=== PATIENT | male | born 1945 | race Caucasian/White ===

== ENCOUNTER → 2017-06-01 09:38 | Outpatient (CLI) | payer MEDICARE, OTHER, SELFPAY ==
--- NOTE | 2017-06-01 09:41 | VDLE_ITS ---
Reason For Study: RLE superficial thrombophlebitis RIGHT CFV is compressible, spontaneous, phasic, competent and demonstrates normal augmentation. T/P Trunk is compressible. PTV is compressible. RT PerV is compressible. FV & POP V are compressible, spontaneous, phasic and demonstrate reflux > 1.0 seconds. SFJ is incompetent. GSV above knee is incompetent > .5 seconds with diamter of 0.654 x 0.664 cm. GSV below knee is competent SSV is competent. VV below knee are compressible. VV above knee are partially compressible. Procedure Exam performed in department. The exam was diagnostic. Interpretation Summary Deep veins of the right lower extremity are patent and compressible segmentally. There is no evidence of right lower extremity deep vein thrombosis. The right femoral vein and popliteal vein are incompetent. The right common femoral vein is competent. The right greater saphenous vein appears patent and compressible segmentally. The right sapheno-femoral junction is incompetent . The right greater saphenous vein appears incompetent above the knee. The right greater saphenous vein appears competent below the knee. The right small saphenous vein is patent and competent. Chronic venous changes are noted involving superficial varicosities above the right knee. Ordering Physician: Ashwin Fermin Referring Physician: Rosa Maria Lopez Performed By: An Fuentes, RDCS, RVT
== END ==
PROVIDERS: Family Provider Family Medicine; PCP Family Medicine; Visit Provider Surgery
DX: I80.01 Phlebitis and thrombophlebitis of superficial vessels of right lower extremity (principal); I83.10 Varicose veins of unspecified lower extremity with inflammation; Z86.72 Personal history of thrombophlebitis
CPT/HCPCS: 93970

== ENCOUNTER → 2017-07-09 12:54 | Outpatient (CLI) | payer MEDICARE, OTHER, SELFPAY ==
--- NOTE | 2017-07-09 12:55 | CT_ITS ---
STUDY: LOW DOSE CT LUNG CANCER SCREENING REASON FOR EXAM: Male, 72 years old. Former smoker. 40 pack-year history. Dry cough for 2 months. RADIATION DOSAGE (If Supplied By Facility): CTDIvol = ( 4.02 ) mGy, DLP = ( 132.90 ) mGycm TECHNIQUE: No contrast was administered. Low dose technique was utilized (average mAS-38 and kVp 120). 1.25 mm axial source images with a slice interval of 1.25-mm were reconstructed in lung windows. 2.5 mm axial source images with a slice interval of 2.5-mm were reconstructed in lung windows. 5.0 mm axial source images with a slice interval of 5.0-mm were reconstructed in soft tissue windows. Nodule measured using lung windows on PACS and/or independent workstation with automated measurement of minimum and maximum diameter. Nodule measurement reported as average diameter rounded to the nearest whole number. Growth is defined as an increase ins size of greater than 1.5 mm. COMPARISON: CT of the chest, January 12, 2017 NODULES: Nodule #: 1 Density: Solid Lung location: Right upper lobe: 0.5 cm from pleura Location in series: Series Number: 2 Image: 40 Size - D1 x D2 mm: 2 x 1 mm: 2 mm average diameter Margin: Well-defined Shape: Oval Calcification: No Fat: No Temporal comparison: None Nodule #: 2 Density: Ground glass Lung location: Right upper lobe: 0.3 cm from pleura Location in series: Series Number: 2 Image: 50 Size - D1 x D2 mm: 3 x 3 mm: 3 mm average diameter Margin: Ill-defined Shape: Rounded Calcification: No Fat: No Temporal comparison: Stable Nodule #: 3 Density: Ground glass Lung location: Right upper lobe 0.6: cm from pleura Location in series: Series Number: 2 Image: 56 Size - D1 x D2 mm: 2 x 2 mm: 2 mm average diameter Margin: Ill-defined Shape: Rounded Calcification: No Fat: No Temporal comparison: Stable Nodule #: 4 Density: Ground glass Lung location: Right upper lobe: 0.3 cm from pleura Location in series: Series Number: 2 Image: 59 Size - D1 x D2 mm: 2 x 2 mm: 2 mm average diameter Margin: Ill-defined Shape: Rounded Calcification: No Fat: No Temporal comparison: None Nodule #: 5 Density: Solid Lung location: Right upper lobe: Pleural-based Location in series: Series Number: 2 Image: 69 Size - D1 x D2 mm: 2 x 1 mm: 2 mm average diameter Margin: Smooth Shape: Oval Calcification: No Fat: No Temporal comparison: Stable Nodule #: 6 Density: Solid Lung location: Right upper lobe: Pleural-based (along the right heart margin) Location in series: Series Number: 2 Image: 119 Size - D1 x D2 mm: 5 x 4 mm: 5 mm average diameter Margin: Normal Shape: Oval Calcification: Yes Fat: No Temporal comparison: Stable Nodule #: 9 Density: Solid Lung location: Right lower lobe: Pleural-based Location in series: Series Number: 2 Image: 137 Size - D1 x D2 mm: 454 mm: 4 mm average diameter Margin: Smooth Shape: Round Calcification: Yes Fat: No Temporal comparison: Stable Nodule #: 10 Density: Solid Lung location: Left lower lobe: Along the oblique fissure Location in series: Series Number: 2 Image: 137 Size - D1 x D2 mm: 3 x 2 mm: 3 mm average diameter Margin: Smooth Shape: Oval Calcification: No Fat: No Temporal comparison: Stable Nodule #: 11 Density: Solid Lung location: Left lower lobe: 1.5 cm from pleura Location in series: Series Number: 2 Image: 153 Size - D1 x D2 mm: 6 x 5 mm: 6 mm average diameter Margin: Smooth Shape: Round Calcification: No Fat: No Temporal comparison: Stable Total lung nodules (excluding granulomas): 7 Emphysema: There is diffuse emphysematous changes throughout both lungs. Endobronchial lesion: None Aorta: There is atherosclerotic tortuosity of the thoracic aorta without aneurysm. Coronary arteries: Coronary artery calcifications are present. Heart: Normal in size Pulmonary artery: Normal Mediastinal nodes: None Other chest and abdominal findings: There are degenerative changes of the thoracic spine. Again seen is a large cyst in the right liver. CT/Low Dose CT Lung Screening IMPRESSION: Lung-RADS category 2 - Continue annual screening with LDCT in 12 months. IMPORTANT NOTES FOR USE: ACR Lung-RADS Version 1.0 Assessment Categories Release Date: August 15, 2013 Category: Coded 0-4 bases on nodule(s) with highest degree of suspicion. Negative screen is defined as categories 1 and 2; a positive screen is defined as categories 3 and 4. Category 3 and 4A nodules that are unchanged on interval CT should be coded as category 2, and individuals returned to screening in 12 months. Category 4X: Category 3 or 4 nodules with additional imaging findings that increase the suspicion of lung cancer, such as spiculation, GGN that doubles in size in 1 year, enlarged lymph notes, etc. Category Modifiers: S (significant finding unrelated to lung cancer) and C (prior history of treated lung cancer) may be added to the 0-4 Lung-RADS Electronically Signed: Payam Solano DO at 16:38 EDT Tel [phone], Service support ,
== END ==
PROVIDERS: Family Provider Family Medicine; PCP Family Medicine; Visit Provider Family Medicine
DX: R05 Cough (principal); Z87.891 Personal history of nicotine dependence
CPT/HCPCS: G0297

== ENCOUNTER → 2018-05-31 10:01 | Outpatient (CLI) | payer MEDICARE, OTHER, SELFPAY ==
[2018-01-20 08:59] VITALS: BMI 37.5
--- NOTE | 2018-05-31 10:04 | ECHOCS_ITS ---
Reason For Study: Dyspnea/SOB Procedure This was a 2D Doppler, Color Flow transthoracic echocardiogram. Contrast injection was performed. Exam performed in department. Left Ventricle Normal LV size. Left ventricular systolic function is normal. The estimated ejection fraction is 55 %. Stage 1 diastolic dysfunction. No regional wall motion abnormalities noted. Right Ventricle Normal RV size. Normal systolic function. Atria The left atrium is mildly enlarged. Normal right atrium. Mitral Valve Normal mitral valve. Tricuspid Valve Normal tricuspid valve. Mild (1+) tricuspid valve insufficiency. Pulmonary artery systolic pressure is 34 mmHg. Aortic Valve Normal aortic valve. Pulmonic Valve Normal pulmonic valve. Great Vessels Normal aortic root. The pulmonary artery is normal size. Normal inferior vena cava. Pericardium/Pleural No pericardial effusion. Medication Definity0.3ml given slow IV push to enhance endocardial definition. MMode/2D Measurements & Calculations LVIDd: 5.6 cm IVSd: 0.95 cm Ao root diam: 3.2 cm LVIDs: 3.1 cm LVPWd: 1.0 cm RVDd: 4.9 cm FS: 45.3 % LAV(MOD-bp): 70.4 ml LVAd ap4: 43.2 cm2 SV(MOD-sp4): 96.0 ml LAV(MOD-bp) Indexed: 31.4 ml/m2 EDV(MOD-sp4): 176.8 ml LAV(MOD-sp2): 60.2 ml EDV(sp4-el): 186.2 ml LAV(MOD-sp4): 72.2 ml LVAs ap4: 26.9 cm2 ESV(MOD-sp4): 80.8 ml ESV(sp4-el): 81.2 ml EF(MOD-sp4): 54.3 % EF(sp4-el): 56.4 % SV(sp4-el): 104.9 ml LA A4 area: 23.0 cm2 LA dimension(2D): 4.3 cm RA A4 area: 22.8 cm2 Doppler Measurements & Calculations MV E max panchito: 67.4 cm/sec Lat Peak E' Panchito: 7.8 cm/sec Med Peak E' Panchito: 5.4 cm/sec MV A max panchito: 83.0 cm/sec E/E' lat: 8.6 E/E' med: 12.6 MV E/A: 0.81 Ao V2 max: 155.3 cm/sec LV V1 max: 112.4 cm/sec PA V2 max: 77.0 cm/sec Ao max P.6 mmHg LV V1 max P.1 mmHg Ao V2 mean: 98.0 cm/sec Ao mean P.4 mmHg Ao V2 VTI: 35.4 cm TR max panchito: 262.4 cm/sec TR max P.5 mmHg Interpretation Summary Normal LV size. Left ventricular systolic function is normal. The estimated ejection fraction is 55 %. Stage 1 diastolic dysfunction. Contrast injection was performed. Ordering Physician: Devyn Torres^D.O. Referring Physician: Gualberto Conrad Performed By: Chelsy Nieves, LIZBETH, RVT
== END ==
PROVIDERS: Family Provider Family Medicine; PCP Family Medicine; Referring Provider Internal Medicine Critical Care Medicine; Visit Provider Internal Medicine Critical Care Medicine
DX: R06.00 Dyspnea, unspecified (principal); R06.02 Shortness of breath
CPT/HCPCS: 93306; Q9957; A4216; C8929

== ENCOUNTER → 2018-06-05 08:32 | Outpatient (CLI) | payer MEDICARE, OTHER, SELFPAY ==
--- NOTE | 2018-06-05 08:35 | CT_ITS ---
STUDY: LOW DOSE CT LUNG CANCER SCREENING REASON FOR EXAM: Male, 73 years old. Tobacco abuse, 60 pack-year history, quit 20 years ago RADIATION DOSAGE (If Supplied By Facility): CTDIvol = ( 4.02 ) mGy, DLP = ( 127.37 ) mGycm TECHNIQUE: No contrast was administered. Low dose technique was utilized (average mAS-38 and kVp 120). 1.25 mm axial source images with a slice interval of 1.25-mm were reconstructed in lung windows. 2.5 mm axial source images with a slice interval of 2.5-mm were reconstructed in lung windows. 5.0 mm axial source images with a slice interval of 5.0-mm were reconstructed in soft tissue windows. Nodule measured using lung windows on PACS and/or independent workstation with automated measurement of minimum and maximum diameter. Nodule measurement reported as average diameter rounded to the nearest whole number. Growth is defined as an increase ins size of greater than 1.5 mm. COMPARISON: None. NODULES: Nodule #: 1 Density: Solid Lung location: Right upper lobe: 0.5 cm from pleura Location in series: Series Number: 2 Image: 40 Size - D1 x D2 mm: 2 x 1 mm: 2 mm average diameter Margin: Well-defined Shape: Oval Calcification: No Fat: No Temporal comparison: Stable Nodule #: 2 Density: Ground glass Lung location: Right upper lobe: 0.3 cm from pleura Location in series: Series Number: 2 Image: 56 Size - D1 x D2 mm: 3 x 3 mm: 3 mm average diameter Margin: Ill-defined Shape: Rounded Calcification: No Fat: No Temporal comparison: Stable Nodule #: 3 Density: Ground glass Lung location: Right upper lobe 0.6: cm from pleura Location in series: Series Number: 2 Image: 61 Size - D1 x D2 mm: 2 x 2 mm: 2 mm average diameter Margin: Ill-defined Shape: Rounded Calcification: No Fat: No Temporal comparison: Stable Nodule #: 4 Density: Ground glass Lung location: Right upper lobe: 0.3 cm from pleura Location in series: Series Number: 2 Image: 64 Size - D1 x D2 mm: 2 x 2 mm: 2 mm average diameter Margin: Ill-defined Shape: Rounded Calcification: No Fat: No Temporal comparison: Stable Nodule #: 5 Density: Solid Lung location: Right upper lobe: Pleural-based Location in series: Series Number: 2 Image: 72 Size - D1 x D2 mm: 2 x 1 mm: 2 mm average diameter Margin: Smooth Shape: Oval Calcification: No Fat: No Temporal comparison: Stable Nodule #: 6 Density: Solid Lung location: Right upper lobe: Pleural-based (along the right heart margin) Location in series: Series Number: 2 Image: 125 Size - D1 x D2 mm: 5 x 4 mm: 5 mm average diameter Margin: Normal Shape: Oval Calcification: Yes Fat: No Temporal comparison: Stable Nodule #: 9 Density: Solid Lung location: Right lower lobe: Pleural-based Location in series: Series Number: 2 Image: 135 Size - D1 x D2 mm: 454 mm: 4 mm average diameter Margin: Smooth Shape: Round Calcification: Yes Fat: No Temporal comparison: Stable Nodule #: 10 Density: Solid Lung location: Left lower lobe: Along the oblique fissure Location in series: Series Number: 2 Image: 121 Size - D1 x D2 mm: 3 x 2 mm: 3 mm average diameter Margin: Smooth Shape: Oval Calcification: No Fat: No Temporal comparison: Stable Nodule #: 11 Density: Solid Lung location: Left lower lobe: 1.5 cm from pleura Location in series: Series Number: 2 Image: 138 Size - D1 x D2 mm: 6 x 5 mm: 6 mm average diameter Margin: Smooth Shape: Round Calcification: No Fat: No Temporal comparison: Stable Total lung nodules (excluding granulomas): 11 Emphysema: There is diffuse emphysematous changes throughout both lungs. Endobronchial lesion: None Aorta: There is atheros (stable) clerotic tortuosity of the thoracic aorta without aneurysm. Coronary arteries: Coronary artery calcifications are present. Heart: Normal in size Pulmonary artery: Normal Mediastinal nodes: None Other chest and abdominal findings: There are degenerative changes of the thoracic spine. Again seen is a cyst in the right liver. CT/Low Dose CT Lung Screening IMPRESSION: Lung-RADS category 2 - Continue annual screening with LDCT in 12 months, if patient meets criteria. IMPORTANT NOTES FOR USE: ACR Lung-RADS Version 1.0 Assessment Categories Release Date: August 15, 2013 Category: Coded 0-4 bases on nodule(s) with highest degree of suspicion. Negative screen is defined as categories 1 and 2; a positive screen is defined as categories 3 and 4. Category 3 and 4A nodules that are unchanged on interval CT should be coded as category 2, and individuals returned to screening in 12 months. Category 4X: Category 3 or 4 nodules with additional imaging findings that increase the suspicion of lung cancer, such as spiculation, GGN that doubles in size in 1 year, enlarged lymph notes, etc. Category Modifiers: S (significant finding unrelated to lung cancer) and C (prior history of treated lung cancer) may be added to the 0-4 Lung-RADS Electronically Signed: Augustin Lentz MD at 14:26 EST , Service support ,
== END ==
PROVIDERS: Family Provider Family Medicine; PCP Family Medicine; Referring Provider Internal Medicine Critical Care Medicine; Visit Provider Internal Medicine Critical Care Medicine
DX: F17.211 Nicotine dependence, cigarettes, in remission (principal)
CPT/HCPCS: G0297

== ENCOUNTER → 2018-07-13 09:19 | Outpatient (CLI) | payer MEDICARE, OTHER, SELFPAY ==
[2018-01-20 08:59] VITALS: BMI 37.5
--- NOTE | 2018-07-13 15:40 | PFTCOMP_ITS ---
COMPLETE PULMONARY FUNCTION TEST INTERPRETATION Brief HPI: Patient is a 73 year old male, currently under the care of Dr. Torres, who presents to [facility] for complete pulmonary function tests secondary to diagnosis of COPD. Respiratory therapist reports good effort and reproducible results. Interpretation: Forced expiration spirometry shows a mild large airways obstructive ventilatory defect with an FEV1 of 87% predicted. There is a significant bronchodilator response in FEV1 by strict ATS criteria. Spirograms are of good quality and plateau slowly, indicating slowly emptying areas of the lungs. The respiratory flow volume loop shows decreased expiratory flow rates at all lung volumes consistent with airway obstruction. Lung volumes by body plethysmography show a normal total lung capacity at 6.15 L, 95% predicted. All other lung volumes are within normal limits. Diffusion capacity by carbon monoxide is normal at 87% predicted. The airway resistance is elevated. Compared to previous pulmonary function tests from 01/13/2017, there has been no significant change. Impression: Partially reversible mild large airways obstructive ventilatory defect with preserved diffusing capacity.
== END ==
PROVIDERS: Family Provider Family Medicine; PCP Family Medicine; Referring Provider Internal Medicine Critical Care Medicine; Visit Provider Internal Medicine Critical Care Medicine
DX: J44.9 Chronic obstructive pulmonary disease, unspecified (principal)
CPT/HCPCS: 94060; 94726; 94729

== ENCOUNTER → 2019-06-04 06:53 | Outpatient (CLI) | payer MEDICARE, OTHER, SELFPAY ==
[2018-07-20 09:34] VITALS: BMI 33.7
--- NOTE | 2019-06-04 06:45 | CT_ITS ---
HISTORY: LUNG CANCER SCREEN. 1PPD X 45 YEARS , QUIT 18 YEARS AGO. COPD TECHNIQUE: Helically acquired images of the chest were obtained without IV contrast. Number of images including paperwork: 950. A radiation dose optimization technique was used for this scan. Exam performed with low dose technique, CTDI 4.02 mGy. DLP 138.43 mGy-cm. COMPARISON: 06/05/2018, and 07/09/2017, 07/02/2016 FINDINGS: VASCULATURE: Vascular tortuosity. Calcified plaque. HEART/PERICARDIUM: Upper normal heart size. Coronary calcification. MEDIASTINUM: Unremarkable. ADENOPATHY: No pathologic appearing adenopathy. THYROID: Unremarkable visualized portions. LUNG PARENCHYMA: No consolidation or mass. Mild to moderate emphysema. Peribronchial thickening. Numerous small lung nodules are seen, largest in perifissural location in the left lower lobe measuring 6 mm in average diameter. These are unchanged compared to 2017. No suspicious lung nodule. PLEURAL SPACES: Unremarkable. UPPER ABDOMEN: Partially visualized spleen appears enlarged, measuring 14.8 x 9 cm in AP by transverse dimensions. Low-density hepatic lesions compatible with cysts, better seen on previous standardized examinations. OSSEOUS AND SOFT TISSUE STRUCTURES: No acute skeletal findings. Degenerative changes. DEVICES: None. CT/Low Dose CT Lung Screening IMPRESSION: No significant change in multiple small bilateral lung nodules. No new lung nodule detected. Lung-RADS 2. Recommend continued annual screening as indicated by published criteria. Individualized dose optimization techniques were used for this CT. at [id number] Reported and signed by: Francesca Lopez MD Electronically Signed: Francesca Lopez MD at 23:59 EST Tel , Service support ,
== END ==
PROVIDERS: PCP Family Medicine; Referring Provider Internal Medicine Critical Care Medicine; Visit Provider Internal Medicine Critical Care Medicine
DX: Z12.2 Encounter for screening for malignant neoplasm of respiratory organs (principal); F17.211 Nicotine dependence, cigarettes, in remission
CPT/HCPCS: G0297

== ENCOUNTER → 2020-06-05 08:10 | Outpatient (CLI) | payer MEDICARE, OTHER, SELFPAY ==
[2019-07-21 09:57] VITALS: BMI 33.7
--- NOTE | 2020-06-05 08:16 | CT_ITS ---
STUDY: LOW DOSE CT LUNG CANCER SCREENING REASON FOR EXAM: Male, 75 years old. LUNG CANCER SCREENING, 40 YR SMOKER X 1 PPD, QUIT 20 YRS AGO, COPD, HTN, ZS=[id number] RADIATION DOSAGE (If Supplied By Facility): CTDIvol = ( 4.02 ) mGy, DLP = ( 133.41 ) mGycm TECHNIQUE: No contrast was administered. Low dose technique was utilized (average mAS-38 and kVp 120). 1.25 mm axial source images with a slice interval of 1.25-mm were reconstructed in lung windows. 2.5 mm axial source images with a slice interval of 2.5-mm were reconstructed in lung windows. 5.0 mm axial source images with a slice interval of 5.0-mm were reconstructed in soft tissue windows. Nodule measured using lung windows on PACS and/or independent workstation with automated measurement of minimum and maximum diameter. Nodule measurement reported as average diameter rounded to the nearest whole number. Growth is defined as an increase ins size of greater than 1.5 mm. COMPARISON: Comparison is made with prior examination dated 06/04/2019. NODULES: Stable 5 mm noncalcified nodule in the right upper lobe as seen on axial image #82. Stable 6 mm nodule in the anterior aspect of the left lower lobe adjacent to the left major fissure. Stable 2 mm nodule in the posterior medial aspect of the right lung apex. Stable 6 mm noncalcified nodule left lower lobe on axial image #138. Stable 3 mm nodule in the left lower lobe. Emphysema: Emphysematous changes more prominent in the upper lobes. Stable mild scarring in both upper lobes. Stable minimal scarring at the lung bases. Endobronchial lesion: None Aorta: Mild atherosclerotic plaque of the aortic arch. Coronary arteries: Coronary artery calcification. Other chest and abdominal findings: Stable cyst in the right lobe of the liver. CT/Low Dose CT Lung Screening IMPRESSION: Lung-RADS category 2 - Continue annual screening with LDCT in 12 months. IMPORTANT NOTES FOR USE: ACR Lung-RADS Version 1.0 Assessment Categories Release Date: August 15, 2013 Category: Coded 0-4 bases on nodule(s) with highest degree of suspicion. Negative screen is defined as categories 1 and 2; a positive screen is defined as categories 3 and 4. Category 3 and 4A nodules that are unchanged on interval CT should be coded as category 2, and individuals returned to screening in 12 months. Category 4X: Category 3 or 4 nodules with additional imaging findings that increase the suspicion of lung cancer, such as spiculation, GGN that doubles in size in 1 year, enlarged lymph notes, etc. Category Modifiers: S (significant finding unrelated to lung cancer) and C (prior history of treated lung cancer) may be added to the 0-4 Lung-RADS Electronically Signed: Bruno Gutierrez MD at 9:49 EST , Service support ,
== END ==
PROVIDERS: PCP Student in an Organized Health Care Education/Training Program; Referring Provider Internal Medicine Critical Care Medicine; Visit Provider Internal Medicine Critical Care Medicine
DX: Z12.2 Encounter for screening for malignant neoplasm of respiratory organs (principal); F17.211 Nicotine dependence, cigarettes, in remission
CPT/HCPCS: 71271

== ENCOUNTER 2021-12-09 08:57 | Outpatient (CLI) | payer MEDICARE, OTHER, SELFPAY | END 2021-12-09 23:59 | disposition home or self-care (01) | LOC: LAB 08:59 | PROVIDERS: PCP Student in an Organized Health Care Education/Training Program; Referring Provider Ophthalmology; Visit Provider Ophthalmology | DX: H04.123 Dry eye syndrome of bilateral lacrimal glands (principal) | CPT/HCPCS: 36415 ==

== ENCOUNTER → 2022-05-31 | Outpatient (CLI) | payer MEDICARE, OTHER, SELFPAY ==
--- NOTE | 2022-05-31 08:36 | CT_ITS ---
STUDY: CT CHEST WITHOUT CONTRAST REASON FOR EXAM: Male, 77 years old. Lung Nodules RADIATION DOSAGE (If Supplied By Facility): CTDIvol = ( 19.38 ) mGy, DLP = ( 736.22 ) mGycm TECHNIQUE: Transaxial CT imaging of the chest was performed without administration of intravenous contrast material, followed by coronal and sagittal reformatting. Individualized dose optimization techniques were used for this CT. COMPARISON: 06/05/2020 FINDINGS: SUPRACLAVICULAR SOFT TISSUES: Normal thyroid. No supraclavicular lymphadenopathy.. MEDIASTINUM: Shotty mediastinal and hilar lymph nodes. Normal tracheobronchial tree. Normal sella area and LUNGS: Mild diffuse emphysematous change of the lungs. No pulmonary infiltrate. Mild bibasilar dependent atelectasis. Indeterminate pulmonary nodules scattered throughout both lungs, all measuring less than 6 mm and unchanged from prior imaging dated 06/05/2020. However, a 6 mm right upper lobe nodule seen on sequence 4 image 43 previously measured 4 mm on more remote exam dated 06/05/2018. No pleural effusion. No pneumothorax. ABDOMEN: Visualized portions of the upper abdomen demonstrate hypoattenuated lesions within the liver which measure water density. There is diverticular disease within the visualized colonic segments without localized inflammation. SKELETAL STRUCTURES: Moderate multilevel degenerative changes in the spine. CT/Chest without Contrast IMPRESSION: 1. Emphysematous change of the lungs. 2. Multiple indeterminant bilateral pulmonary nodules all measuring less than 6 mm, all of which are unchanged from prior imaging dated 06/05/2020 but a dominant nodule in the right upper lobe which demonstrates slow interval increase in size compared to remote imaging dated 06/05/2018. Continued surveillance is recommended to document stability. 3. Cyst versus hemangiomas scattered throughout the liver, unchanged. Electronically Signed: Tuan Garcia MD at 9:58 EST ,
== END | disposition home or self-care (01) ==
LOC: CT 08:31
PROVIDERS: PCP Student in an Organized Health Care Education/Training Program; Referring Provider Student in an Organized Health Care Education/Training Program; Visit Provider Student in an Organized Health Care Education/Training Program
DX: R91.8 Other nonspecific abnormal finding of lung field (principal); Z87.891 Personal history of nicotine dependence
CPT/HCPCS: 71250

== ENCOUNTER → 2023-11-21 | Outpatient (CLI) | payer MEDICARE, OTHER, SELFPAY ==
--- NOTE | 2023-11-21 08:41 | CT_ITS ---
EXAM: CT CHEST WITHOUT INTRAVENOUS CONTRAST CLINICAL INDICATION: multiple nodules, one new TECHNIQUE: Helically acquired images were obtained of the chest without intravenous contrast. This CT exam was performed using one or more of the following dose reduction techniques: automated exposure control, adjustment of the mA and/or kV according to patient size, and/or use of iterative reconstruction technique. RADIATION DOSE: CTDIvol = 17.93 mGy, DLP = 631.67 mGy-cm COMPARISON: May 2023, June 05, 2020. Most recent report provided from May 31 2022 described multiple stable indeterminate bilateral pulmonary nodules less than 6 mm compared to 2020 but 6 mm right upper lobe nodule was estimated to be 4 mm in 2019. No mention of new nodule. Cysts versus hemangiomas reported throughout the liver. FINDINGS: LUNGS AND PLEURAL SPACES: Similar tiny calcified granuloma superior right lung apex. Emphysematous changes again noted in the upper lung walker. No new or larger pulmonary nodule. HEART: Mild calcifications of the aortic valve and multifocal coronary artery calcifications appears similar with the exception of mild are seen calcifications in right coronary artery. Heart size is normal. No pericardial effusion. MEDIASTINUM: Slightly nodular appearance adjacent to the anterior right mediastinum at the upper lobe is stable from 202. Stable mildly dense very peripheral 3 mm nodule at the right posterior-lateral upper lobe. Stable 5.1 mm right upper lobe nodule best seen on axial images compared to 2021. At least 3 stable subcentimeter subpleural nodules along the left major fissure best seen on coronal images, the largest roughly 5.5 mm. Small mediastinal lymph nodes including in the aortopulmonary window appear similar to 2021. Esophagus is unremarkable. No hiatal hernia. THYROID: Unremarkable. No thyroid lesions. BONES/JOINTS: Mild thoracic spondylosis appears similar. No suspicious lytic or blastic abnormality. VASCULATURE: Atherosclerotic calcification of aorta mild tortuosity of aorta appears stable. LIVER: At least 3 hypodensities in the upper liver appears similar to 2021. CT/Chest without Contrast IMPRESSION: 1. Stable COPD. 2. Stable multiple and bilateral scattered subcentimeter pulmonary and subpleural nodules compared to exam June 05, 2020. No nodules greater than 6 mm. RECOMMENDATIONS: The presence of emphysema on CT is an independent risk factor for lung cancer. Consider annual low dose CT lung screening. Electronically Signed: Genoveva Arellano MD at 5:11 EDT ,
== END | disposition home or self-care (01) ==
LOC: CT 08:40
PROVIDERS: PCP Student in an Organized Health Care Education/Training Program; Referring Provider Nurse Practitioner Acute Care; Visit Provider Nurse Practitioner Acute Care
DX: R91.8 Other nonspecific abnormal finding of lung field (principal)
CPT/HCPCS: 71250